=== PATIENT | male | born 1965 | race Caucasian/White ===

== ENCOUNTER → 2017-01-01 | Outpatient (CLI) | payer OTHER ==
[~2017-01-01] VITALS: Ht 177.8 cm; Wt 85.0 kg
[2017-01-01 17:00] LABS: HEMOGLOBIN 15.2 gm/dl (14.0-17.5); RED BLOOD COUNT 5.15 M/UL (4.20-5.50); WHITE BLOOD COUNT 7.8 K/UL (4.5-11.0)
[2017-01-01 17:28] LABS: BUN/CREATININE RATIO 22 (0-10)
== END ==
LOC: OPSV 15:42
PROVIDERS: Family Medicine
DX: Z13.220 Encounter for screening for lipoid disorders (principal); J44.9 Chronic obstructive pulmonary disease, unspecified
CPT/HCPCS: 36415; 80048; 80061; 80076; 84153; 84443; 85027; 96372; J0696; J1100